=== PATIENT | male | born 1965 | race Two or more races ===

== ENCOUNTER 2025-05-04 11:49 | Outpatient (OUT) | payer BC, SELFPAY ==
--- OUTSIDE RECORDS SUMMARY | 2025-05-04 11:57 | XMS_ITS | Patient Health Record ---
Author Organization [facility] in [place] Address [address] [place] [address] Care Team Providers Care Car Supervisor Name Role Phone Tamar Redd CNP Primary Care Provider U ibanailable Jerrod Vincent Unavailable [phone] Allergies No Known Allergies Reason For Referral Diagnosis 1 Elevated PSA (R97.20 ) Referring Provider First Name Tamar Referring Provider Last Name Ivania Referring Provider Speciality Nurse Prac titioner Referred Organization [facility] Referred Provider Jerrod Vincent Referred Address [address],[place], [place],[address], Referred Provider Specialty Urology General Notes Sandy Sanchez 01/2025 01:57:45 PM >left msg Referral Priority Urgent Medications Medication SIG (Take, Route, Frequency, Duration) Notes Start Date End Date Status Atorvastatin Calcium 20 MG TAKE 1 TABLET BY MOUTH DAILY Oral; Duration: 90 Days Active Fenofibrate 54 MG Oral; Duration: 90 Days Active Social History Tobacco Use: Social History Observation Description Date Details (start date - stop date) Current Smoker NA - NA Tobacco Control (Standard) Question Answer Notes Tobacco use: Current every day smoker AUDIT-C (Standard) Question Answer Notes Did you have a drink containing alcohol in the p ast year? No Points 0 Interpretation Negative Problems Problem Type SNOMED Code ICD Code Onset Dates Problem Status W/U Status Risk Notes Problem Testicular hypofunction (750845839) Testicular hypofunction (E29.1) Active confirmed Vital Signs Height 70 in 01/19/2025 Weight 261 lbs 01/19/2025 BMI 37.45 kg/m2 01/19/2025 Encounters Encounter Location Date Provider Diagnosis [facility] [address] [place] [address] 01/19/2025 Jerrod Carlton Elevated prostate specific antigen (PSA) R97.20 and Testicular hypofunction E29.1 Assessments Encounter Date Diagnosis (ICD Code) Assessment Notes Treatment Notes Treatment Clinical Notes Section Notes 01/19/2025 Elevated prostate specific antigen (PSA) (ICD-10 - R97.20) 01/19/2025 Testicular hypofunction (ICD-10 - E29.1) 01/19/2025 Other Recheck T. PSA acceptable and will continue to follow closely. Plan Of Treatment Pending Test Test Name Order Date ESTROGEN, TOTAL 01/19/2025 TESTOSTERONE, TOTAL 01/19/2025 LH 01/19/2025 Insurance Providers Payer Name Payer Address Payer Phone Subscriber Number Group Number Insured Name Patient Relationship to Insured Coverage Start Date Coverage End Date [employer] PPO PLUS LOCAL PLAN [address] [place] [phone] [id number] Levon Wasserman Self - patient is the insured Medical (General) History Medical History History ICD Code hyperglycemia Surgical History Surgery Date(Month/Year) middle finger tendon umbilical hernia repair
--- OUTSIDE RECORDS SUMMARY | 2025-05-04 11:57 | XMS_ITS | Continuity of Care Document ---
Author Organization [facility] Address [facility] [address] [place] [address] Phone [phone] Care Team Providers Care Speeder Worker Name Role Phone KATIE TREVIZO M.D. Care Team Information Re ceiver Unavailable
== END 2025-05-04 11:50 | disposition home or self-care (01) ==
LOC: LAB 11:55
PROVIDERS: PCP Nurse Practitioner Family; Visit Provider Nurse Practitioner Family
DX: E11.9 Type 2 diabetes mellitus without complications (principal)
CPT/HCPCS: 36415; 83036